=== PATIENT | female | born 2000 | race Caucasian/White ===

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

== ENCOUNTER 2019-01-10 13:42 | Emergency (ER) | payer OTHER ==
[~2019-01-10] VITALS: Ht 170.2 cm; Wt 54.5 kg
[2019-01-10 13:42] VITALS: BP 104/61
[~2019-01-10 13:42] MED LIST: MOTR200T44 PO; RALT40TA PO; TRUVTAB PO
== END 2019-01-10 16:01 | disposition left against medical advice (07) ==
LOC: M ED 13:42 → EEVIPCON 13:42 → M ED 16:01
DX: Z53.29 Procedure and treatment not carried out because of patient's decision for other reasons (principal)

== ENCOUNTER 2019-01-13 20:57 | Emergency (ER) | payer OTHER ==
[~2019-01-13] VITALS: Ht 152.4 cm; Wt 56.0 kg
[2019-01-13 21:04] VITALS: BP 122/75
[2019-01-13] MEDS ORDERED: TRUVTAB PO (21:06)
== END 2019-01-13 23:14 | disposition left against medical advice (07) ==
LOC: M ED 20:57
DX: Z53.21 Procedure and treatment not carried out due to patient leaving prior to being seen by health care provider (principal)

== ENCOUNTER 2019-04-14 09:26 | Emergency (ER) | payer OTHER, SELFPAY ==
[~2019-04-14] VITALS: Ht 170.2 cm; Wt 55.6 kg
[2019-04-14] MEDS: IPRATROPIUM 0.5MG/ALBUTEROL 2.5MG INH SOL UD 3ML (DUONEB)(J7620) NEB PRN ×2 (10:36→10:53)
[2019-04-14 10:37] LABS: BASO % 0.7 % (0.0-1.0); EOS # 0.1 10^3/uL (0.0-0.5); EOS % 1.8 % (0.0-3.0); HEMATOCRIT 46.6 % (36.0-47.0); HEMOGLOBIN 15.4 g/dl (12.0-15.5); LYMPH # 1.2 10^3/uL (1.5-5.0); LYMPH % 20.6 % (24.0-44.0); MEAN CORPUSCULAR VOLUME 90.7 fl (80.0-96.0); MONO # 0.9 10^3/uL (0.0-0.8); MONO % 14.2 % (0.0-5.0); NEUTROPHILS # 3.7 10^3/uL (1.5-8.5); NEUTROPHILS % 62.4 % (36.0-66.0); PLATELET COUNT, AUTOMATED 280 10^3/uL (150-450); RED BLOOD COUNT 5.14 10^6/uL (4.00-5.40)
[2019-04-14 11:01] LABS: HCG, SERUM QUALITATIVE NEGATIVE (NEGATIVE)
[2019-04-14 11:03] LABS: ALBUMIN 4.3 GM/DL (3.2-5.2); ALT/SGPT 17 U/L (12-78); BILIRUBIN,TOTAL 0.4 MG/DL (0.2-1.0); BLOOD UREA NITROGEN 9 MG/DL (7-18); CALCIUM LEVEL 9.4 MG/DL (8.5-10.1); CARBON DIOXIDE LEVEL 29 MEQ/L (21-32); CHLORIDE LEVEL 106 MEQ/L (98-107); CREATININE FOR GFR 0.75 MG/DL (0.55-1.30); GLUCOSE, FASTING 84 MG/DL (70-100); POTASSIUM SERUM 4.4 MEQ/L (3.5-5.1); SODIUM LEVEL 138 MEQ/L (136-145); TOTAL PROTEIN 7.4 GM/DL (6.4-8.2)
[2019-04-14 11:18] LABS: INFLUENZA A AMPLIFICATION NEGATIVE (NEGATIVE); INFLUENZA B AMPLIFICATION NEGATIVE (NEGATIVE)
[2019-04-14] MEDS ORDERED: PROV108A INH (11:37)
[2019-04-14] MEDS ORDERED: AEROMIS XX (11:37)
[2019-04-14] MEDS ORDERED: PRED20TA PO (11:37)
[2019-04-14] MEDS ORDERED: MUCI1TAB16 PO (11:37)
[2019-04-14 11:44] VITALS: BP 116/64
[2019-04-14] MEDS ORDERED: predniSONE 20 MG TAB PO ONE (11:45)
[2019-04-15 10:44] LABS: HEPATITIS B SURFACE ANTIBODY NEGATIVE (POSITIVE)
[2019-04-15 10:54] LABS: HEPATITIS B SURFACE ANTIGEN NEGATIVE (NEGATIVE)
[2019-04-15 11:23] LABS: HEPATITIS C VIRUS ABY INDEX 0.1 INDEX (<0.8); HIV 1&2 SCREEN CENTAUR NEGATIVE (NEGATIVE)
== END 2019-04-14 11:53 | disposition home or self-care (01) ==
LOC: M ED 09:26
DX: J98.09 Other diseases of bronchus, not elsewhere classified (principal); N64.4 Mastodynia; Z11.3 Encounter for screening for infections with a predominantly sexual mode of transmission; F17.200 Nicotine dependence, unspecified, uncomplicated; F12.90 Cannabis use, unspecified, uncomplicated; Z79.899 Other long term (current) drug therapy

== ENCOUNTER 2019-06-04 11:59 | Emergency (ER) | payer MEDICAID ==
[~2019-06-04] VITALS: Ht 170.2 cm; Wt 54.0 kg
[~2019-06-04 11:59] MED LIST changes: +AEROMIS XX; +MUCI1TAB16 PO; +PRED20TA PO; +PROV108A INH
[2019-06-04 12:00] VITALS: BP 107/68
[2019-06-05] MEDS ORDERED: ONDA4TAB6 PO (17:21)
== END 2019-06-04 13:02 | disposition left against medical advice (07) ==
LOC: M ED 11:59
DX: Z53.21 Procedure and treatment not carried out due to patient leaving prior to being seen by health care provider (principal)

== ENCOUNTER 2019-06-05 13:29 | Emergency (ER) | payer MEDICAID ==
[~2019-06-05] VITALS: Ht 170.2 cm; Wt 55.0 kg
[2019-06-05] MEDS ORDERED: ONDANSETRON 4MG/2ML VIAL (J2405) IV ONE (14:15)
[2019-06-05] MEDS ORDERED: ONDANSETRON 4 MG ORAL DISINTEGRATING TAB (Q0162 PER 1MG) PO ONE (14:45)
[2019-06-05 14:51] LABS: BASO # 0.1 10^3/uL (0.0-0.2); BASO % 0.5 % (0.0-1.0); EOS # 0.1 10^3/uL (0.0-0.5); EOS % 0.7 % (0.0-3.0); HEMATOCRIT 44.3 % (36.0-47.0); HEMOGLOBIN 14.6 g/dl (12.0-15.5); LYMPH # 1.5 10^3/uL (1.5-5.0); LYMPH % 13.5 % (24.0-44.0); MEAN CORPUSCULAR HEMOGLOBIN 29.7 pg (27.0-33.0); MONO # 0.7 10^3/uL (0.0-0.8); MONO % 6.3 % (0.0-5.0); NEUTROPHILS # 8.7 10^3/uL (1.5-8.5); NEUTROPHILS % 78.8 % (36.0-66.0); PLATELET COUNT, AUTOMATED 286 10^3/uL (150-450); RED BLOOD COUNT 4.92 10^6/uL (4.00-5.40)
[2019-06-05 16:18] LABS: BILIRUBIN,DIRECT 0.4 MG/DL (0.0-0.2); BILIRUBIN,TOTAL 1.5 MG/DL (0.2-1.0); TOTAL PROTEIN 7.4 GM/DL (6.4-8.2)
[2019-06-05 16:19] LABS: ALBUMIN 4.3 GM/DL (3.2-5.2); AMPHETAMINES LEVEL URINE POSITIVE (NEGATIVE); BARBITURATES URINE NEGATIVE (NEGATIVE)
[2019-06-05 16:20] LABS: BENZODIAZEPINES URINE NEGATIVE (NEGATIVE); CANNABINOIDS URINE POSITIVE (NEGATIVE); COCAINE METABOLITE URINE NEGATIVE (NEGATIVE); METHADONE URINE NEGATIVE (NEGATIVE); OPIATES URINE NEGATIVE (NEGATIVE)
[2019-06-05 17:15] VITALS: BP 111/65
[2019-06-05] MEDS ORDERED: ONDA4TAB6 PO (17:21)
[2019-06-05 18:32] LABS: PHENCYCLIDINE URINE NEGATIVE (NEGATIVE)
== END 2019-06-05 17:35 | disposition left against medical advice (07) ==
LOC: M ED 13:29
DX: E86.0 Dehydration (principal); E80.7 Disorder of bilirubin metabolism, unspecified; F12.90 Cannabis use, unspecified, uncomplicated; F17.200 Nicotine dependence, unspecified, uncomplicated; Z53.20 Procedure and treatment not carried out because of patient's decision for unspecified reasons
CPT/HCPCS: 36415; 80047; 80076; 80307; 81001; 83690; 84702; 85025; 87086; 99284; Q0162

== ENCOUNTER 2019-10-31 14:01 | Emergency (ER) | payer MEDICAID, OTHER ==
[~2019-10-31] VITALS: Ht 170.2 cm; Wt 56.0 kg
[~2019-10-31 14:01] MED LIST changes: +ONDA4TAB6 PO
[2019-10-31] MEDS ORDERED: PRENTAB29 PO (14:10)
[2019-10-31] MEDS ORDERED: METOCLOPRAMIDE INJ 10MG/2ML VIAL (J2765 PER 1) IV ONE (14:45)
[2019-10-31] MEDS ORDERED: NS 1,000 ML IV ONE (14:45)
[2019-10-31 15:18] LABS: BASO % 0.5 % (0.0-1.0); EOS # 0.2 10^3/uL (0.0-0.5); EOS % 1.9 % (0.0-3.0); HEMATOCRIT 42.8 % (36.0-47.0); HEMOGLOBIN 14.7 g/dl (12.0-15.5); LYMPH # 1.8 10^3/uL (1.5-5.0); MEAN CORPUSCULAR HEMOGLOBIN 29.5 pg (27.0-33.0); MEAN CORPUSCULAR HGB CONC 34.3 g/dl (32.0-36.5); MEAN CORPUSCULAR VOLUME 85.9 fl (80.0-96.0); MONO # 0.6 10^3/uL (0.0-0.8); MONO % 7.6 % (0.0-5.0); NEUTROPHILS # 5.8 10^3/uL (1.5-8.5); NEUTROPHILS % 68.8 % (36.0-66.0); PLATELET COUNT, AUTOMATED 345 10^3/uL (150-450); RED BLOOD COUNT 4.98 10^6/uL (4.00-5.40); WHITE BLOOD COUNT 8.5 10^3/uL (4.0-10.0)
[2019-10-31 15:46] LABS: ALT/SGPT 18 U/L (12-78); BILIRUBIN,DIRECT 0.2 MG/DL (0.0-0.2); BILIRUBIN,TOTAL 0.8 MG/DL (0.2-1.0)
[2019-10-31 15:47] LABS: ALBUMIN 4.3 GM/DL (3.2-5.2); HCG, SERUM QUALITATIVE POSITIVE (NEGATIVE); LIPASE 148 U/L (73-393); TOTAL PROTEIN 7.5 GM/DL (6.4-8.2)
[2019-10-31] MEDS ORDERED: UNIS25TA3 PO (17:14)
[2019-10-31] MEDS ORDERED: PYRI25TA2 PO (17:14)
[2019-10-31 17:27] VITALS: BP 118/55
[2019-10-31 18:07] LABS: HCG, SERUM QUANTITATIVE 27718 MIU/ML
[2019-11-02] MEDS ORDERED: MACR100C43 PO (09:48)
== END 2019-10-31 17:45 | disposition home or self-care (01) ==
LOC: M ED 14:01
DX: Z32.01 Encounter for pregnancy test, result positive (principal); R11.2 Nausea with vomiting, unspecified; N63.0 Unspecified lump in unspecified breast; F17.210 Nicotine dependence, cigarettes, uncomplicated
CPT/HCPCS: 80047; 80076; 81001; 83690; 84702; 84703; 85025; 87088; 87186; 96361; 96374; 99284; J2765

== ENCOUNTER → 2019-11-04 | Outpatient (REF) | payer MEDICAID ==
[~2019-11-04] MED LIST changes: +MACR100C43 PO; +PRENTAB29 PO; +PYRI25TA2 PO; +UNIS25TA3 PO
[2019-11-04 13:45] LABS: BLOOD UREA NITROGEN 6 MG/DL (7-18); CALCIUM LEVEL 9.1 MG/DL (8.5-10.1); CARBON DIOXIDE LEVEL 29 MEQ/L (21-32); CHLORIDE LEVEL 106 MEQ/L (98-107); CREATININE FOR GFR 0.55 MG/DL (0.55-1.30); GLUCOSE, FASTING 78 MG/DL (70-100); SODIUM LEVEL 139 MEQ/L (136-145)
== END ==
LOC: M SFHCPLAZ 09:57
PROVIDERS: ATTEND Family Medicine
DX: E87.6 Hypokalemia (principal)

== ENCOUNTER → 2019-11-14 | Outpatient (REF) | payer MEDICAID | LOC: M PLALAB 14:45 | PROVIDERS: ATTEND Advanced Practice Midwife | DX: Z3A.00 Weeks of gestation of pregnancy not specified (principal) ==

== ENCOUNTER → 2019-11-17 | Outpatient (CLI) | payer MEDICAID | LOC: M LAB 13:13 | PROVIDERS: ATTEND Advanced Practice Midwife | DX: Z32.01 Encounter for pregnancy test, result positive (principal); Z3A.00 Weeks of gestation of pregnancy not specified ==

== ENCOUNTER 2019-12-27 17:07 | Emergency (ER) | payer MEDICAID, OTHER ==
[~2019-12-27] VITALS: Ht 170.2 cm; Wt 56.0 kg
[2019-12-27] MEDS ORDERED: NS 1,000 ML IV ONE (17:45)
[2019-12-27 18:18] LABS: BASO # 0.1 10^3/uL (0.0-0.2); BASO % 0.5 % (0.0-1.0); EOS # 0.2 10^3/uL (0.0-0.5); EOS % 1.6 % (0.0-3.0); HEMATOCRIT 35.2 % (36.0-47.0); HEMOGLOBIN 11.9 g/dl (12.0-15.5); LYMPH % 20.6 % (24.0-44.0); MEAN CORPUSCULAR HEMOGLOBIN 29.7 pg (27.0-33.0); MEAN CORPUSCULAR HGB CONC 33.8 g/dl (32.0-36.5); MEAN CORPUSCULAR VOLUME 87.8 fl (80.0-96.0); MONO # 0.7 10^3/uL (0.0-0.8); MONO % 7.3 % (0.0-5.0); NEUTROPHILS # 6.8 10^3/uL (1.5-8.5); NEUTROPHILS % 69.7 % (36.0-66.0); PLATELET COUNT, AUTOMATED 307 10^3/uL (150-450); RED BLOOD COUNT 4.01 10^6/uL (4.00-5.40); WHITE BLOOD COUNT 9.8 10^3/uL (4.0-10.0)
[2019-12-27 18:47] LABS: BLOOD UREA NITROGEN 10 MG/DL (7-18); CALCIUM LEVEL 9.3 MG/DL (8.5-10.1); CARBON DIOXIDE LEVEL 27 MEQ/L (21-32); CHLORIDE LEVEL 106 MEQ/L (98-107); CREATININE FOR GFR 0.68 MG/DL (0.55-1.30); GLUCOSE, FASTING 79 MG/DL (70-100); HCG, SERUM QUANTITATIVE 18 MIU/ML; SODIUM LEVEL 138 MEQ/L (136-145)
--- NOTE | 2019-12-27 18:48 | REPVR ---
PROCEDURE INFORMATION: Exam: US Nonobstetric Pelvis; Complete Exam date and time: 12/27/2019 6:28 PM Age: 19 years old Clinical indication: Menstruation abnormalities; Excessive menstruation; Patient HX: Recent spont ab now with heavy bleeding with clots; Additional info: Vaginal bleeding TECHNIQUE: Imaging protocol: Transabdominal pelvic nonobstetric ultrasound. Complete exam. Real time ultrasound with image documentation. COMPARISON: No relevant prior studies available. FINDINGS: Uterus/cervix: The endometrium is heterogeneous and thickened, measuring 14 mm, with increased color flow. Findings suggest retained products of conception. On a few images, there is suggestion of either a tiny amount of fluid in the endometrial cavity, or tiny 4 mm cystic structure in the endometrium. The uterus measures 7.2 x 4.0 x 5.1 cm. Right adnexa: The right ovary is normal in size and echogenicity, measuring 4.0 x 3.3 by 2.7 cm. Anechoic cystic structure immediately adjacent to the right ovary measures 1.9 x 1.6 x 1.3 cm, with no internal color flow or internal echoes. This represents either a paraovarian cyst, or exophytic simple cyst arising from the ovary. Arterial flow was observed to the right ovary. Left adnexa: The left ovary is normal in size and echogenicity, measuring 2.1 x 1.6 x 2.7 cm. Arterial flow was observed to the left ovary. Free fluid: None. Bladder: Grossly unremarkable. IMPRESSION: 1. Thickened heterogeneous endometrium with increased color flow suggesting retained products of conception. There appears to be either a tiny amount of fluid in the endometrial cavity or a 4 mm cystic structure in the endometrium. 2. 1.9 cm simple cyst immediately adjacent to the right ovary, either an exophytic cyst arising from the right ovary, or para ovarian cyst. No further imaging follow-up is necessary for this finding. 3. No free fluid. Electronically signed by: Brianne Joyner On 12/27/2019 18:48:20 PM
[2019-12-27 21:27] LABS: CHLAMYDIA DNA AMPLIFICATION NEGATIVE (NEGATIVE); GC DNA AMPLIFICATION NEGATIVE (NEGATIVE)
[2019-12-27 21:42] VITALS: BP 108/65
== END 2019-12-27 21:47 | disposition home or self-care (01) ==
LOC: M ED 17:07
DX: O03.9 Complete or unspecified spontaneous abortion without complication (principal); N83.201 Unspecified ovarian cyst, right side; F17.210 Nicotine dependence, cigarettes, uncomplicated

== ENCOUNTER → 2020-06-15 | Outpatient (CLI) | payer MEDICAID | LOC: M OUTALCOH 08:04 | PROVIDERS: ATTEND Psychiatry & Neurology Addiction Medicine | DX: F10.10 Alcohol abuse, uncomplicated (principal) ==

== ENCOUNTER 2020-07-21 15:18 | Outpatient (RCR) | payer MEDICAID | END 2020-07-26 | LOC: M OUTALCOH 15:18 | PROVIDERS: ATTEND Psychiatry & Neurology Addiction Medicine | DX: F12.20 Cannabis dependence, uncomplicated (principal); F17.200 Nicotine dependence, unspecified, uncomplicated ==

== ENCOUNTER 2020-08-12 18:27 | Emergency (ER) | payer OTHER ==
[~2020-08-12] VITALS: Ht 170.2 cm; Wt 56.8 kg
--- OUTSIDE RECORDS SUMMARY | 2020-08-12 18:33 | CCD ---
Author Organization Unknown Address [address] [place] [address] Phone [phone] Care Team Providers Care Floor Layer Tile Name Role Phone 238 Covid Nurse Unavailable Unavailable Allergies None recorded. Medications None recorded. Problems Name Status Onset Date Source Allergic Rhinitis Active 03/16/2018 History Bronchitis Active 03/16/2018 History Exposure to Second Hand Tobacco Smoke Active 03/16/2018 History Tobacco Use and Exposure - Finding Active 03/16/2018 History Cannabis Dependence Active 03/26/2019 History Influenza Vaccine Needed Active 03/26/2019 History Homeless Active 03/26/2019 History Procedure by Method Active 03/26/2019 History Procedures None recorded. Results Lab Results Date Name Specimen Result Interpretation Description Value Range Status Address 07/13/2020 SARS CoV 2 RdRp Gene, QL Probe, Respiratory Spec imen Nasopharyngeal Normal Sars-cov-2 negative negative Final [facility]: [address] [facility] Past Encounters 07/13/2020 Exposure to SARS-CoV-2 Arden Shannon MD: [address] [place] [address], Ph. Social History None recorded. Vaccine List Vaccine Type Hep B, adolescent or pediatric 04/30/20190.5 mL meningococcal B, OMV 04/30/20190.5 mL Plan of Care Reminders Provider Appointments None recorded. Lab None recorded. Referral None recorded. Procedures None recorded. Surgeries None recorded. Imaging None recorded. Vitals 03/26/2019 Height Weight Blood Pressure 67 in 129 lbs 6.4 oz 120/60 mm[Hg] 03/18/2019 Height Weight Blood Pressure 65.86 in 124 lbs 6.4 oz 100/60 mm[Hg]
--- OUTSIDE RECORDS SUMMARY | 2020-08-12 18:34 | CCD ---
Author Author [facility] Organization [facility] Address Unknown Phone Unavailable Care Team Providers Care Silk Printer Name Role Phone Hernan Shannon MD Unavailable Unavailable Hernan Shannon MD Unavailable Unavailable Hernan Shannon MD Unavailable Unavailable Hernan Shannon MD Unavailable Unavailable Hernan Shannon MD Unavailable Unavailable Hernan Shannon MD Unavailable Unavailable Hernan Shannon MD Unavailable Unavailable Hernan Shannon MD Unavailable Unavailable Hernan Shannon MD Unavailable Unavailable Hernan Shannon MD Unavailable Unavailable Hernan Shannon MD Unavailable Unavailable Hernan Shannon MD Unavailable Unavailable Hernan Shannon MD Unavailable Unavailable Hernan Shannon MD Unavailable Unavailable Hernan Shannon MD Unavailable Unavailable Hernan Shannon MD Unavailable Unavailable Hernan Shannon MD Unavailable Unavailable Hernan Shannon MD Unavailable Unavailable Hernan Shannon MD Unavailable Unavailable Hernan Shannon MD Unavailable Unavailable Hernan Shannon MD Unavailable Unavailable Hernan Shannon MD Unavailable Unavailable Hernan Shannon MD Unavailable Unavailable Hernan Shannon MD Unavailable Unavailable Hernan Shannon MD Unavailable Unavailable Hernan Shannon MD Unavailable Unavailable Hernan Shannon MD Unavailable Unavailable Hernan Shannon MD Unavailable Unavailable Hernan Shannon MD Unavailable Unavailable Hernan Shannon MD Unavailable Unavailable Hernan Shannon MD Unavailable Unavailable Hernan Shannon MD Unavailable Unavailable Hernan Shannon MD Unavailable Unavailable Hernan Shannon MD Unavailable Unavailable Hernan Shannon MD Unavailable Unavailable Hernan Shannon MD Unavailable Unavailable Hernan Shannon MD Unavailable Unavailable Hernan Shannon MD Unavailable Unavailable Hernan Shannon MD Unavailable Unavailable Hernan Shannon MD Unavailable Unavailable Hernan Shannon MD Unavailable Unavailable Hernan Shannon MD Unavailable Unavailable Hernan Shannon MD Unavailable Unavailable Hernan Shannon MD Unavailable Unavailable Hernan Shannon MD Unavailable Unavailable Hernan Shannon MD Unavailable Unavailable Hernan Shannon MD Unavailable Unavailable Hernan Shannon MD Unavailable Unavailable Hernan Shannon MD Unavailable Unavailable Hernan Shannon MD Unavailable Unavailable Hernan Shannon MD Unavailable Unavailable Hernan Shannon MD Unavailable Unavailable Hernan Shannon MD Unavailable Unavailable Hernan Shannon MD Unavailable Unavailable Hernan Shannon MD Unavailable Unavailable Hernan Shannon MD Unavailable Unavailable Hernan Shannon MD Unavailable Unavailable Hernan Shannon MD Unavailable Unavailable Hernan Shannon MD Unavailable Unavailable Hernan Shannon MD Unavailable Unavailable Hernan Shannon MD Unavailable Unavailable Hernan Shannon MD Unavailable Unavailable Hernan Shannon MD Unavailable Unavailable Hernan Shannon MD Unavailable Unavailable Hernan Shannon MD Unavailable Unavailable Hernan Shannon MD Unavailable Unavailable Hernan Shannon MD Unavailable Unavailable Hernan Shannon MD Unavailable Unavailable Hernan Shannon MD Unavailable Unavailable Hernan Shannon MD Unavailable Unavailable Hernan Shannon MD Unavailable Unavailable Hernan Shannon MD Unavailable Unavailable Hernan Shannon MD Unavailable Unavailable Hernan Shannon MD Unavailable Unavailable Hernan Shannon MD Unavailable Unavailable Hernan Shannon MD Unavailable Unavailable Hernan Shannon MD Unavailable Unavailable Hernan Shannon MD Unavailable Unavailable Hernan Shannon MD Unavailable Unavailable Hernan Shannon MD Unavailable Unavailable Hernan Shannon MD Unavailable Unavailable Hernan Shannno MD Unavailable Unavailable Hernan Shannon MD Unavailable Unavailable Hernan Shannon MD Unavailable Unavailable Hernan Shannon MD Unavailable Unavailable Hernan Shannon MD Unavailable Unavailable Hernan Shannon MD Unavailable Unavailable Hernan Shannon MD Unavailable Unavailable Hernan Shannon MD Unavailable Unavailable Lisa Stevenson Unavailable Ramos, S Nancy PA Unavailable Unavailable Ramos, S Nancy PA Unavailable Unavailable Ramos, S Nancy PA Unavailable Unavailable Ramos, S Nancy PA Unavailable Unavailable Ramos, S Nancy PA Unavailable Unavailable Ramos, S Nancy PA Unavailable Unavailable Ramos, S Nancy PA Unavailable Unavailable Ramos, S Nancy PA Unavailable Unavailable Ramos, S Nancy PA Unavailable Unavailable Ramos, S Nancy PA Unavailable Unavailable Ramos, S Nancy PA Unavailable Unavailable Ramos, S Nancy PA Unavailable Unavailable Ramos, S Nancy PA Unavailable Unavailable Ramos, S Nancy PA Unavailable Unavailable Ramos, S Nancy PA Unavailable Unavailable Ramos, S Nancy PA Unavailable Unavailable Ramos, S Nancy PA Unavailable Unavailable Ramos, S Nancy PA Unavailable Unavailable Ramos, S Nancy PA Unavailable Unavailable Ramos, S Nancy PA Unavailable Unavailable Ramos, S Nancy PA Unavailable Unavailable Ramos, S Nancy PA Unavailable Unavailable Ramos, S Nancy PA Unavailable Unavailable Ramos, S Nancy PA Unavailable Unavailable Ramos, S Nancy PA Unavailable Unavailable Ramos, S Nancy PA Unavailable Unavailable Ramos, S Nancy PA Unavailable Unavailable Ramos, S Nancy PA Unavailable Unavailable Ramos, S Nancy PA Unavailable Unavailable Ramos, S Nancy PA Unavailable Unavailable Ramos, S Nancy PA Unavailable Unavailable Ramos, S Nancy PA Unavailable Unavailable Re-disclosure Warning The records that you are about to access may contain information from federally-assisted alcohol or drug abuse programs. If such information is present, then the following federally mandated warning applies: This information has been disclosed to you from records protected by federal confidentiality rules (42 CFR part 2). The federal rules prohibit you from making any further disclosure of this information unless further disclosure is expressly permitted by the written consent of the person to whom it pertains or as otherwise permitted by 42 CFR part 2. A general authorization for the release of medical or other information is NOT sufficient for this purpose. The Federal rules restrict any use of the information to criminally investigate or prosecute any alcohol or drug abuse patient.The records that you are about to access may contain highly sensitive health information, the redisclosure of which is protected by Article 27-F of the [facility] Public Health law. If you continue you may have access to information: Regarding HIV / AIDS; Provided by facilities licensed or operated by the [facility] Office of Mental Health; or Provided by the [facility] Office for People With Developmental Disabilities. If such information is present, then the following [facility] mandated warning applies: This information has been disclosed to you from confidential records which are protected by state law. State law prohibits you from making any further disclosure of this information without the specific written consent of the person to whom it pertains, or as otherwise permitted by law. Any unauthorized further disclosure in violation of state law may result in a fine or skilled nursing sentence or both. A general authorization for the release of medical or other information is NOT sufficient authorization for further disc losure. Allergies and Adverse Reactions Type Description Substance Reaction Status Data Source(s ) metal metal metal rash blisters Active eCW1 ([facility]) Allergy to substance Allergy to substance Allergy to substance JENNIE ([facility]) Encounters Encounter Providers Location Date Indications Data Source(s ) Arden Shannon MD: [address] [place] [phone], Ph. Attender: Arden Shannon MD [facility] Medical 07/13/2020 12:00:00 AM EST JENNIE ([facility]) Outpatient Attender: Nancy CHEN ALL 03/18/2020 11:14 :00 AM EDT [facility] [place] [address] [facility] [address] 03/10/2020 12:00:00 AM EDT eCW1 ([facility]) Outpatient [address] [facility] [address] 12/24/2019 12:00:00 AM EDT eCW1 ([facility]) Outpatient [address] [facility] [address] 11/27/2019 12:00:00 AM EDT eCW1 ([facility]) [facility] [place] [address] [facility] [address] 11/22/2019 12:00:00 AM EDT eCW1 ([facility]) [facility] [address] [place] [address] 11/14/2019 12:00:00 AM EDT eCW1 ([facility]) [facility] [address] [facility] [address] 11/09/2019 12:00:00 AM EDT eCW1 ([facility]) [address] [address] 11/04/2019 12:00:00 AM EDT eCW1 ([facility]) [address] [address] 11/04/2019 12:00:00 AM EDT eCW1 ([facility]) Outpatient Attender: Nancy PINK 11/01/2019 10:46 :00 AM EDT [address] [address] 10/31/2019 12:00:00 AM EDT eCW1 ([facility]) Extended Individual Psychotherapy - 45 min [facility]28[facility] 02:00:00 AM EST - 06/28/2019 02:00:00 AM EST [facility] ([facility]) Attender: Lisa Stevenson 06/28/2019 12:00:00 AM EST [facility] ([facility]) Medications Medication Brand Name Start Date Product Form Dose Route Admi nistrative Instructions Pharmacy Instructions Status Indications Reaction Description Data Source(s) Ondansetron 4 MG Oral Tablet Ondansetron HCl 4 MG Ondansetro n HCl 4 MG 11/09/2019 12:00:00 AM EDT 1.0 {tablet} suspende d Ondansetron HCl 4 MG eCW1 ([facility]) Ondansetron 4 MG Oral Tablet Ondansetron HCl 4 MG Ondansetro n HCl 4 MG 11/09/2019 12:00:00 AM EDT active 1 tablet eCW1 ([facility]) Ondansetron 4 MG Oral Tablet Ondansetron HCl 4 MG Ondansetro n HCl 4 MG 11/09/2019 12:00:00 AM EDT 1.0 {tablet} suspende d Ondansetron HCl 4 MG eCW1 ([facility]) 4 mg 11/09/2019 12:00:00 AM EDT tablet 12 TAKE ONE TABLET BY MOUTH EVERY 6 HOURS NEEDED TAKE ONE TABLET BY MOUTH EVERY 6 HOURS NEEDED SOLD: 11/10/2019 [facility] Ondansetron 4 MG Oral Tablet Ondansetron HCl 4 MG Ondansetro n HCl 4 MG 11/09/2019 12:00:00 AM EDT 1.0 {tablet} suspende d Ondansetron HCl 4 MG eCW1 ([facility]) Insurance Providers Payer name Policy type / Coverage type Policy ID Covered constitution party ID Covered constitution party's relationship to murdock Policy [place] Plan Information [facility] [id number] SP [id number] FORMERLY [facility] COMMUNITY PLAN [facility] [id number] SP [id number] EMEDNY [id number] SP [id number] EMEDNY [id number] SP [id number] MEDICAID [id number] SP [id number] MEDICAID [id number] SP [id number] FORMERLY [facility] COMMUNITY PLAN [facility] [id number] SP [id number] FREDY [id number] SP [id number] SELF PAY ONLY [id number] SP [id number] FORMERLY [facility] COMMUNITY PLAN [facility] [id number] SP [id number] [facility] OFFICE OF VICTIM SERVICES [id number] SP [id number] [place]([facility]) Commercial [id number] Self [id number] /Godinez ([facility]) Commercial [id number] Self [id number] [employer]([facility]) Commercial [id number] Self [id number] [facility] O [id number] S [id number] O BLUE [id number] SP [id number] [facility] [address] P S [employer] BCBS P [id number] S [id number] Problems, Conditions, and Diagnoses Code Display Name Description Problem Type Effective Dates Data Source(s) V01.79 Contact with and (suspected) exposure to other viral communicable diseases Contact with and (suspected) exposure to other viral communicable diseases 03/18/2020 11:13:44 AM EDT [facility] Z34.80 care Supervision of other normal P roblem 11/14/2019 12:00:00 AM EDT eCW1 ([facility]) Z34.80 care Supervision of other normal P roblem 11/14/2019 12:00:00 AM EDT eCW1 ([facility]) F17.210 [id number] Cigarette nicotine dependence without com plication Problem 11/04/2019 12:00:00 AM EDT eCW1 ([facility]) F17.210 [id number] Cigarette nicotine dependence without com plication Problem 11/04/2019 12:00:00 AM EDT eCW1 ([facility]) F41.9 Anxiety disorder, unspecified Unspecified Anxiety Diso rder Condition 06/28/2019 12:00:00 AM EST [facility] ([facility]) F12.20 Cannabis dependence, uncomplicated Cannabis Use Disorder, Severe Condition 06/28/2019 12:00:00 AM EST [facility] ([facility]) Surgeries/Procedures Procedure Description Date Indications Data Source(s) Extended Individual Psychotherapy - 45 min 06/28/2019 12:00:00 AM EST - 06/28/2019 12:00:00 AM EST [facility] ([facility]) Extended Individual Psychotherapy - 45 min 0 12:00:00 AM EST [facility] ([facility]) Results ID Date Data Source [id number] 07/13/2020 02:09:00 PM EST JENNIE ([facility]) Name Value Range Interpretation Code Description Data Ana rce(s) Supporting Document(s) sars-cov-2 negative negative normal Sars-cov-2 [facility]) ID Date Data Source [id number] 07/13/2020 01:07:00 PM EST [facility] Name Value Range Interpretation Code Description Data Ana rce(s) Supporting Document(s) SARS coronavirus 2 RdRp gene [Presence] in Respiratory specimen by [facility] with probe detection Not detected [facility] This lab was ordered by [facility] and reported by [facility]. ID Date Data Source Basic Metabolic Profile (BMP) 11/04/2019 12:00:00 AM EDT eCW 1 ([facility]) Name Value Range Interpretation Code Description Data Ana rce(s) Supporting Document(s) 78 70-100 GLUCOSE, FASTING eCW1 ([facility]) 139 136-145 SODIUM LEVEL eCW1 ([facility]) 0.55 0.55-1.30 CREATININE FOR GFR eCW1 ([facility]) 6 7-18 BLOOD UREA NITROGEN eCW1 ([facility]) 106 98-107 CHLORIDE LEVEL eCW1 ([facility]) 4.0 3.5-5.1 POTASSIUM SERUM eCW1 ([facility]) 9.1 8.5-10.1 CALCIUM LEVEL eCW1 ([facility]) 29 21-32 CARBON DIOXIDE LEVEL eCW1 ([facility]) Procedure Social History Code Duration Value Status Description Data Source(s ) Smoking 12/24/2019 12:00:00 AM EDT Current Smoker completed Curre nt Smoker eCW1 ([facility]) Smoking 11/27/2019 12:00:00 AM EDT Former Smoker completed Former Smoker eCW1 ([facility]) Smoking 06/28/2019 12:00:00 AM EST Unknown if ever smoked comp leted Unknown if ever smoked [facility] ([facility]) Vital Signs ID Date Data Source UNK Name Value Range Interpretation Code Description Data Source(s) Diastolic blood pressure 60 mm[Hg] 60 mm[Hg] eCW1 ([facility]) Systolic blood pressure 112 mm[Hg] 112 mm[Hg] e CW1 ([facility]) Body mass index (BMI) [Ratio] 19.83 kg/m2 19.83 kg/m2 eCW1 ([facility]) Body height 67 [in_i] 67 [in_i] W1 ([facility]) Body weight 126.6 [lb_av] 126.6 [lb_av] eCW1 ([facility]) Diastolic blood pressure 64 mm[Hg] 64 mm[Hg] eCW1 ([facility]) Systolic blood pressure 108 mm[Hg] 108 mm[Hg] e CW1 ([facility]) Body mass index (BMI) [Ratio] 19.891 kg/m2 19.8 91 kg/m2 eCW1 ([facility]) Body height 67 [in_i] 67 [in_i] eCW1 ([facility]) Body weight 127 [lb_av] 127 [lb_av] eCW1 ([facility]) Diastolic blood pressure 66 mm[Hg] 66 mm[Hg] eCW1 ([facility]) Systolic blood pressure 102 mm[Hg] 102 mm[Hg] e CW1 ([facility]) Body mass index (BMI) [Ratio] 19.985 kg/m2 19.9 85 kg/m2 eCW1 ([facility]) Body height 67 [in_i] 67 [in_i] eCW1 ([facility]) Body weight 127.6 [lb_av] 127.6 [lb_av] eCW1 ([facility]) Diastolic blood pressure 60 mm[Hg] 60 mm[Hg] eCW1 ([facility]) Systolic blood pressure 100 mm[Hg] 100 mm[Hg] e CW1 ([facility]) Body temperature 97 [degF] 97 [degF] eCW1 ([facility]) Respiratory rate 20 /min 20 /min eCW1 ([facility]) Heart rate 113 /min 113 /min eCW1 ([facility]) Body mass index (BMI) [Ratio] 20.05 kg/m2 20.05 kg/m2 eCW1 ([facility]) Body height 67 [in_us] 67 [in_us] eCW1 ([facility]) Body weight Measured 128 [lb_av] 128 [lb_av] eC W1 ([facility]) Patient Treatment Plan of Care Planned Activity Planned Date Details Description Data Source (s) Ondansetron 4 MG Oral Tablet 11/09/2019 12:00:00 AM EDT eCW1 ([facility])
--- OUTSIDE RECORDS SUMMARY | 2020-08-12 19:31 | CCD ---
Author Author [facility] Organization [facility] Address Unknown Phone Unavailable Care Team Providers Care [place] Worker Name Role Phone Hernan Shannon MD Unavailable [...] is protected by Article 27-F of the [facility] Public Health law. If you continue you may have access to information: Regarding HIV / AIDS; Provided by facilities licensed or operated by the [facility] Office of Mental Health; or Provided by the [facility] Office for People With Developmental Disabilities. If such information is present, then the following [facility] mandated warning applies: This information has [...] law may result in a fine or shelter sentence or both. A general authorization for the release of medical or other information is NOT sufficient authorization for further disc losure. Allergies and Adverse Reactions Type Description Substance Reaction Status Data Source(s ) metal metal metal rash blisters Active eCW1 (Replaced by [facility]) Allergy to substance Allergy to substance Allergy to substance JENNIE ([facility]) Encounters Encounter Providers Location Date Indications Data Source(s ) Arden Shannon MD: [address] [place] [phone], Ph. Attender: Arden Shannon MD [facility] Medical 07/13/2020 12:00:00 AM EST JENNIE ([facility]) Outpatient Attender: Nancy CHEN ALL 03/18/2020 11:14 :[address] [facility] [place] [address] [facility] [address] 03/10/2020 12:00:00 AM EDT eCW1 ([facility]) Outpatient [address] [facility] [address] 12/24/2019 12:00:00 AM EDT eCW1 ([facility]) Outpatient [address] [facility] [address] 11/27/2019 12:00:00 AM EDT eCW1 ([facility]) [facility] [place] [address] [facility] [address] 11/22/2019 12:00:00 AM EDT eCW1 ([facility]) [facility] [address] [place] [address] 11/14/2019 12:00:00 AM EDT eCW1 ([facility]) [facility] [address] [facility] [address] 11/09/2019 12:00:00 AM EDT eCW1 ([facility]) [facility] [address] [place] [address], [facility] [address] 11/04/2019 12:00:00 AM EDT eCW1 ([facility]) [address] [address] 11/04/2019 12:00:00 AM EDT eCW1 ([facility]) Outpatient Attender: Nancy PINK 11/01/2019 10:46 :00 AM EDT [address], [place] [address] 10/31/2019 12:00:00 AM EDT eCW1 ([facility]) Extended Individual Psychotherapy - 45 min Attender: Sofiya ramos [facility] 06/28/2019 02:00:00 AM EST - 06/28/2019 02:00:00 AM EST [facility] ([facility]) Attender: Lisa Stevenson 06/28/2019 12:00:00 AM EST [facility] ([facility]) Medications Medication Brand Name Start Date Product Form Dose Route Admi nistrative Instructions Pharmacy Instructions Status Indications Reaction Description Data Source(s) Ondansetron 4 MG Oral Tablet Ondansetron HCl 4 MG Ondansetro n HCl 4 MG 11/09/2019 12:00:00 AM EDT 1.0 {tablet} suspende d Ondansetron HCl 4 MG eCW1 ([facility]) Ondansetron 4 MG Oral Tablet Ondansetron HCl 4 MG Ondansetro n HCl 4 MG 11/09/2019 12:00:00 AM EDT active 1 tablet eCW1 ([facility]) Ondansetron 4 MG Oral Tablet Ondansetron HCl 4 MG Ondansetro n HCl 4 MG 11/09/2019 12:00:00 AM EDT 1.0 {tablet} suspende d Ondansetron HCl 4 MG eCW1 ([facility]) 4 mg 11/09/2019 12:00:00 AM EDT tablet 12 TAKE ONE TABLET BY MOUTH EVERY 6 HOURS NEEDED TAKE ONE TABLET BY MOUTH EVERY 6 HOURS NEEDED SOLD: 11/10/2019 [facility] Ondansetron 4 MG Oral Tablet Ondansetron HCl 4 MG Ondansetro n HCl 4 MG 11/09/2019 12:00:00 AM EDT 1.0 {tablet} suspende d Ondansetron HCl 4 MG eCW1 ([facility]) Insurance Providers Payer name Policy type / Coverage type Policy ID Covered alliance party ID Covered alliance party's relationship to murdock Policy [place] Plan Information OTHER LIABILITY [id number] SP [id number] [facility] COMMUNITY PLAN [facility] [id number] SP [id number] [facility] [id number] SP [id number] [facility] [id number] SP [id number] [facility] [id number] SP [id number] MEDICAID [id number] SP [id number] MEDICAID [id number] SP [id number] [facility] COMMUNITY PLAN [facility] [id number] SP [id number] FREDY [id number] SP [id number] SELF PAY ONLY [id number] SP [id number] [facility] COMMUNITY PLAN [facility] [id number] SP [id number] [facility] [id number] SP [id number] [place] Commercial [id number] Self [id number] [place] ([facility]) Commercial [id number] Self [id number] [place]) Commercial [id number] Self [id number] [place] [employer](HEALTH SYSTEM[employer]) O [id number] S [id number] HMO BLUE [id number] SP [id number] [employer] BCBS P [id number] S [id number] Problems, Conditions, and Diagnoses Code Display Name Description Problem Type Effective Dates Data Source(s) V01.79 Contact with and (suspected) exposure to other viral communicable diseases Contact with and (suspected) exposure to other viral communicable diseases 03/18/2020 11:13:44 AM EDT [facility] Z34.80 care Supervision of other normal P [place] 11/14/2019 12:00:00 AM EDT eCW1 ([facility]) Z34.80 care Supervision of other normal P roblem 11/14/2019 12:00:00 AM EDT eCW1 ([facility]) F17.210 [id number] Cigarette nicotine dependence without com plication Problem 11/04/2019 12:00:00 AM EDT eCW1 ([facility]) F17.210 [id number] Cigarette nicotine dependence without com plication Problem 11/04/2019 12:00:00 AM EDT eCW1 ([facility]) F41.9 Anxiety disorder, unspecified Unspecified Anxiety Diso rder Condition 06/28/2019 12:00:00 AM EST [facility] ([facility]) F12.20 Cannabis dependence, uncomplicated Cannabis Use Disorder, Severe Condition 06/28/2019 12:00:00 AM EST [facility] ([facility]) Surgeries/Procedures Procedure Description Date Indications Data Source(s) Extended Individual Psychotherapy - 45 min 06/28/2019 12:00:00 AM EST - 06/28/2019 12:00:00 AM EST [facility] ([facility]) Extended Individual Psychotherapy - 45 min 0 12:00:00 AM EST [facility] ([facility]) Results ID Date Data Source [id number] 07/13/2020 02:09:00 PM EST JENNIE ([facility]) Name Value Range Interpretation Code Description Data Ana rce(s) Supporting Document(s) sars-cov-2 negative negative normal [facility] ID Date Data Source [id number] 07/13/2020 01:07:00 PM EST [facility] Name Value Range Interpretation Code Description Data Ana rce(s) Supporting Document(s) SARS coronavirus 2 RdRp gene [Presence] in Respiratory specimen by [facility] with probe detection Not detected [facility] This lab was ordered by [facility] and reported by [facility]. ID Date Data Source Basic Metabolic Profile (BMP) 11/04/2019 12:00:00 AM EDT eCW 1 ([facility]) Name Value Range Interpretation Code Description Data Ana rce(s) Supporting Document(s) 78 70-100 GLUCOSE, FASTING eCW1 ([facility]) 139 136-145 SODIUM LEVEL eCW1 ([facility]) 0.55 0.55-1.30 CREATININE FOR GFR eCW1 ([facility]) 6 7-18 BLOOD UREA NITROGEN eCW1 (Replaced by [facility]) 106 98-107 CHLORIDE LEVEL eCW1 ([facility]) 4.0 3.5-5.1 POTASSIUM SERUM eCW1 ([facility]) 9.1 8.5-10.1 CALCIUM LEVEL eCW1 ([facility]) 29 21-32 CARBON DIOXIDE LEVEL eCW1 ([facility]) Procedure Social History Code Duration Value Status Description Data Source(s ) Smoking 12/24/2019 12:00:00 AM EDT Current Smoker completed Curre nt Smoker eCW1 ([facility]) Smoking 11/27/2019 12:00:00 AM EDT Former Smoker completed Former Smoker eCW1 ([facility]) Smoking 06/28/2019 12:00:00 AM EST Unknown if ever smoked comp leted Unknown if [facility] Vital Signs ID Date Data Source UNK Name Value Range Interpretation Code Description Data Source(s) Diastolic blood pressure 60 mm[Hg] 60 mm[Hg] eCW1 ([facility]) Systolic blood pressure 112 mm[Hg] 112 mm[Hg] e CW1 ([facility]) Body mass index (BMI) [Ratio] 19.83 kg/m2 19.83 kg/m2 eCW1 ([facility]) Body height 67 [in_i] 67 [in_i] eCW1 ([facility]) Body weight 126.6 [lb_av] 126.6 [lb_av] eCW1 ([facility]) Diastolic blood pressure 64 mm[Hg] 64 mm[Hg] eCW1 ([facility]) Systolic blood pressure 108 mm[Hg] 108 mm[Hg] e CW1 ([facility]) Body mass index (BMI) [Ratio] 19.891 kg/m2 19.8 91 kg/m2 eCW1 ([facility]) Body height 67 [in_i] 67 [in_i] eCW1 ([facility]) Body weight 127 [lb_av] 127 [lb_av] eCW1 ([facility]) Diastolic blood pressure 66 mm[Hg] 66 mm[Hg] eCW1 ([facility]) Systolic blood pressure 102 mm[Hg] 102 mm[Hg] e CW1 ([facility]) Body mass index (BMI) [Ratio] 19.985 kg/m2 19.9 85 kg/m2 eCW1 ([facility]) Body height 67 [in_i] 67 [in_i] eCW1 ([facility]) Body weight 127.6 [lb_av] 127.6 [lb_av] eCW1 ([facility]) Diastolic blood pressure 60 mm[Hg] 60 mm[Hg] eCW1 ([facility]) Systolic blood pressure 100 mm[Hg] 100 mm[Hg] e CW1 ([facility]) Body temperature 97 [degF] 97 [degF] eCW1 ([facility]) Respiratory rate 20 /min 20 /min eCW1 ([facility]) Heart rate 113 /min 113 /min eCW1 ([facility]) Body mass index (BMI) [Ratio] 20.05 kg/m2 20.05 kg/m2 eCW1 ([facility]) Body height 67 [in_us] 67 [in_us] eCW1 ([facility]) Body weight Measured 128 [lb_av] 128 [lb_av] eC W1 ([facility]) Patient Treatment Plan of Care Planned Activity Planned Date Details Description Data Source (s) Ondansetron 4 MG Oral Tablet 11/09/2019 12:00:00 AM EDT eCW1 ([facility])
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
[2020-08-12] MEDS ORDERED: ONDANSETRON 4 MG ORAL DISINTEGRATING TAB PO ONE (20:00)
[2020-08-12 20:04] VITALS: BP 155/96
== END 2020-08-12 20:06 | disposition home or self-care (01) ==
LOC: M ED 18:27
DX: O9A.211 Injury, poisoning and certain other consequences of external causes complicating pregnancy, first trimester (principal); S00.81XA Abrasion of other part of head, initial encounter; S16.1XXA Strain of muscle, fascia and tendon at neck level, initial encounter; V49.50XA Passenger injured in collision with unspecified motor vehicles in traffic accident, initial encounter; O99.511 Diseases of the respiratory system complicating pregnancy, first trimester; Z3A.08 8 weeks gestation of pregnancy
CPT/HCPCS: 70486; 72125; 99283; Q0162

== ENCOUNTER 2020-08-18 14:59 | Outpatient (RCR) | payer MEDICAID | END 2020-08-23 | LOC: M OUTALCOH 14:59 | PROVIDERS: ATTEND Psychiatry & Neurology Psychiatry | DX: F12.20 Cannabis dependence, uncomplicated (principal); F17.200 Nicotine dependence, unspecified, uncomplicated ==

== ENCOUNTER 2021-09-12 15:37 | Emergency (ER) | payer MEDICAID, OTHER, SELFPAY ==
[~2021-09-12] VITALS: Ht 167.6 cm; Wt 54.5 kg
[~2021-09-12 15:37] MED LIST changes: +EMTR1TAB16 PO; -TRUVTAB PO
[2021-09-12] MEDS ORDERED: ACETAMINOPHEN TAB 650MG DOSE (2X325MG) PO ONE (17:20)
[2021-09-12 18:14] LABS: BASO # 0.1 10^3/uL (0.0-0.2); BASO % 0.3 % (0.0-1.0); EOS # 0.2 10^3/uL (0.0-0.5); EOS % 1.3 % (0.0-3.0); HEMATOCRIT 39.5 % (36.0-47.0); HEMOGLOBIN 13.1 g/dl (12.0-15.5); LYMPH # 1.3 10^3/uL (1.5-5.0); LYMPH % 8.5 % (24.0-44.0); MEAN CORPUSCULAR HEMOGLOBIN 29.3 pg (27.0-33.0); MEAN CORPUSCULAR HGB CONC 33.2 g/dl (32.0-36.5); MEAN CORPUSCULAR VOLUME 88.4 fl (80.0-96.0); MONO # 1.2 10^3/uL (0.0-0.8); MONO % 7.6 % (2.0-8.0); NEUTROPHILS # 12.6 10^3/uL (1.5-8.5); NEUTROPHILS % 81.9 % (36.0-66.0); PLATELET COUNT, AUTOMATED 286 10^3/uL (150-450); RED BLOOD COUNT 4.47 10^6/uL (4.00-5.40); WHITE BLOOD COUNT 15.4 10^3/uL (4.0-10.0)
[2021-09-12 18:35] LABS: BLOOD UREA NITROGEN 7 MG/DL (7-18); CARBON DIOXIDE LEVEL 26 MEQ/L (21-32); CHLORIDE LEVEL 103 MEQ/L (98-107); GLOMERULAR FILTRATION RATE > 60.0 (>60); GLUCOSE, FASTING 87 MG/DL (70-100); POTASSIUM SERUM 3.7 MEQ/L (3.5-5.1); SODIUM LEVEL 135 MEQ/L (136-145)
[2021-09-12] MEDS ORDERED: NS 1,000 ML IV ONE (18:50)
[2021-09-12 18:54] LABS: ERYTHROCYTE SEDIMENTATION RATE 18 mm/hr (0-20)
[2021-09-12] MEDS ORDERED: KETOROLAC 30 MG/ML 1ML VIAL IV ONE (18:55)
[2021-09-12] MEDS ORDERED: ISOVUE-370 76% 100ML VIAL As Ordered ONE (19:02)
[2021-09-12] MEDS ORDERED: BACTRIM 160MG/800MG DS TAB PO ONE (20:30)
[2021-09-12] MEDS ORDERED: KETO10TAB PO (20:35)
[2021-09-12] MEDS ORDERED: BACT800T5 PO (20:35)
[2021-09-12 20:47] VITALS: BP 106/55
== END 2021-09-12 20:48 | disposition home or self-care (01) ==
LOC: M ED 15:37
DX: L03.311 Cellulitis of abdominal wall (principal); F17.210 Nicotine dependence, cigarettes, uncomplicated; F12.20 Cannabis dependence, uncomplicated
CPT/HCPCS: 74177; 76705; 80048; 83605; 84702; 85025; 85652; 86140; 87040; 96361; 96374; 99283; J1885; Q9967

== ENCOUNTER → 2023-11-14 | Outpatient (REF) | payer MEDICAID, OTHER ==
[~2023-11-14] MED LIST changes: +ALBU6.7H6 INH; +BACT800T5 PO; +KETO10TAB PO; -PROV108A INH
== END ==
LOC: M SFHCWAGY 12:18
PROVIDERS: ATTEND Obstetrics & Gynecology
DX: Z36.85 Encounter for antenatal screening for Streptococcus B (principal); Z3A.38 38 weeks gestation of pregnancy

== ENCOUNTER 2023-11-22 23:27 | Outpatient (CLI) | payer OTHER ==
[2023-11-23] MEDS ORDERED: FERR325T3 PO (00:05)
[2023-11-23] MEDS ORDERED: MULTTAB20 PO (00:06)
[2023-11-23 00:47] VITALS: BP 118/76
== END 2023-11-23 00:27 | disposition home or self-care (01) ==
LOC: M LDO 23:27
PROVIDERS: ATTEND Advanced Practice Midwife
DX: O47.1 False labor at or after 37 completed weeks of gestation (principal); O99.333 Smoking (tobacco) complicating pregnancy, third trimester; O26.23 Pregnancy care for patient with recurrent pregnancy loss, third trimester; O09.293 Supervision of pregnancy with other poor reproductive or obstetric history, third trimester; O09.33 Supervision of pregnancy with insufficient antenatal care, third trimester; O99.323 Drug use complicating pregnancy, third trimester; F17.219 Nicotine dependence, cigarettes, with unspecified nicotine-induced disorders; F12.90 Cannabis use, unspecified, uncomplicated; Z91.414 Personal history of adult intimate partner abuse; Z3A.39 39 weeks gestation of pregnancy
CPT/HCPCS: 59025; G0463

== ENCOUNTER 2023-11-30 10:59 | Outpatient (CLI) | payer OTHER, MEDICAID ==
[~2023-11-30] VITALS: Ht 170.2 cm; Wt 72.1 kg
[~2023-11-30 10:59] MED LIST changes: +FERR325T3 PO; +MULTTAB20 PO; +ONDA-282 PO; -ONDA4TAB6 PO
[2023-11-30 11:17] VITALS: BP 95/54
[2023-12-02] MEDS ORDERED: FAMO20TA PO (10:06)
[2023-12-02] MEDS ORDERED: PRENTAB9 PO (10:06)
[2023-12-04] MEDS ORDERED: IBUP-1022 PO (10:36)
[2023-12-04] MEDS ORDERED: ACET-683 PO (10:36)
== END 2023-11-30 14:20 | disposition home or self-care (01) ==
LOC: M LDO 10:59
PROVIDERS: ATTEND Obstetrics & Gynecology
DX: O47.1 False labor at or after 37 completed weeks of gestation (principal); O09.293 Supervision of pregnancy with other poor reproductive or obstetric history, third trimester; O09.33 Supervision of pregnancy with insufficient antenatal care, third trimester; Z3A.40 40 weeks gestation of pregnancy
CPT/HCPCS: 59025; G0463

== ENCOUNTER 2024-03-04 10:17 | Emergency (ER) | payer MEDICAID, OTHER ==
[~2024-03-04] VITALS: Ht 167.6 cm; Wt 55.6 kg
[~2024-03-04 10:17] MED LIST changes: +ACET-683 PO; +FAMO20TA PO; +IBUP-1022 PO; +PRENTAB9 PO
[2024-03-04 13:50] VITALS: BP 103/58; O2SAT 99
[2024-03-04 13:57] VITALS: TEMP 96.9
== END 2024-03-04 13:57 | disposition home or self-care (01) ==
LOC: M ED 10:17
DX: S80.01XA Contusion of right knee, initial encounter (principal); S80.02XA Contusion of left knee, initial encounter; Y92.019 Unspecified place in single-family (private) house as the place of occurrence of the external cause; Y93.9 Activity, unspecified; Y99.9 Unspecified external cause status; W19.XXXA Unspecified fall, initial encounter; F41.9 Anxiety disorder, unspecified; F32.A Depression, unspecified; Z91.048 Other nonmedicinal substance allergy status; Z79.1 Long term (current) use of non-steroidal anti-inflammatories (NSAID); Z79.810 Long term (current) use of selective estrogen receptor modulators (SERMs)